=== PATIENT | female | born 1980 | race Two or more races ===

== ENCOUNTER 2024-08-05 10:07 | Outpatient (RCR) | payer MEDICAID, SELFPAY ==
--- NOTE | 2024-08-05 11:02 | PTNOTE_ITS ---
PT OP Initial Eval Patient Information Outpatient Physical Therapy Treatment Date: 08/05/24 Visit Reasons: Pain In Right knee Medical Diagnosis: M25.561 Treatment Dx #1: R knee pain Start of Care: 08/05/24 Date of Onset: 2 yrs ago Smoking Status Smoking Status: Never smoker Initial Assessment Subjective: Pt is 44 yr old citizen of [place] speaking female who reports R knee pain x2 yrs after a dog tried to attack her and hit her knee. Increased pain with stairs, getting up from a chair, turning or twisting the knee. This limits walking tolerance and sometimes the pain is intense. PMH: none Imaging: with provider Pt goal: less knee pain Objective: R knee ArOM: Extension: -4 deg Flexion: 40 deg with pain SLR: 35 deg with pain Strength: Quads: 3-/5 HS: 3+/5 Gait: antalgic TTP: high of patella tendon and inferior pole of patella Josee's: positive due to knee flexion Varus stress: positive for gapping Patella compression: positive Assessment: Pt presents with high tissue irritability of R patella tendon and patella compression sensitivity which limits ROM and strength. Pt requires skilled therapy to meet goals and has fair/poor rehab potential. Short Term and Disaster Director Goals 1. Independent with HEP ? 2. Improved quad strength to 4-/5 ? 3. Improved knee ROM to full extension to at least 100 deg flexion 4. Decreased TTP of patella tendon from high to min Treatment Plan 1. Manual therapy ? 2. Therex ? 3. Modalities as indicated, moist heat, ice, estim Frequency and Duration: 1-2x a week for 12 Rx sessions plus the evaluation Certification Dates: 08/05/24 to 11/03/24 Procedure Charges OP PT Eval Mod Complex 30 minutes: Yes
--- NOTE | 2024-09-06 14:35 | PT.ODS1RPT ---
PT OP Progress/Discharge Note Date of Service: 09/06/24 Progress Note/DC Note Progress Note/Discharge Note: DC Note Patient Information Visit Reasons: Pain In Right knee Service Continue Service or Discharge: Discharge Discharge Date: 09/06/24 Status Assessment: Pt attended the initial evaluation and no showed on 08/19 and canceled on 08/24 and 08/26 and never returned or called to schedule a follow-up appointment within the past 30 days, which is not in compliance with attendance policy. Pt?s attendance is not consistent enough to make progress with goals. Thank you for your referrals. Plan: D/C
== END 2024-09-01 23:59 | disposition home or self-care (01) ==
LOC: CPTX 10:07
PROVIDERS: PCP Physician Assistant; Referring Provider Physician Assistant; Visit Provider Physician Assistant
DX: M25.561 Pain in right knee (principal); R26.2 Difficulty in walking, not elsewhere classified
CPT/HCPCS: 97162